=== PATIENT | male | born 1950 | race Caucasian/White ===

== ENCOUNTER 2017-11-26 06:01 | Day surgery (SDC) | payer MEDICARE, OTHER ==
[~2017-11-26] VITALS: Ht 175.3 cm; Wt 88.5 kg
[2017-11-26 06:18] VITALS: BP 132/91; PULSE 66; TEMP 97.8
[2017-11-26] MEDS ORDERED: ASPIRIN 81M81 MG/TA2 PO (06:22)
[2017-11-26 07:35] VITALS: BP 108/69; PULSE 66; TEMP 97.8
[2017-11-26 07:50] VITALS: BP 107/75; PULSE 64
== END 2017-11-26 08:10 | disposition home or self-care (01) ==
LOC: SDCO 06:01
DX: Z12.11 Encounter for screening for malignant neoplasm of colon (principal); Z80.0 Family history of malignant neoplasm of digestive organs
CPT/HCPCS: OP; J2250; J3010; J7030